=== PATIENT | male | born 1985 | race Caucasian/White ===

== ENCOUNTER 2016-09-19 10:30 | Emergency (ER) | payer OTHER ==
[~2016-09-19] VITALS: Ht 180.3 cm; Wt 73.5 kg
[~2016-09-19 10:30] MED LIST: IBUPROFEN800 MG PO; VICODIN5-300 PO
--- NOTE | 2016-09-19 10:52 | ED INFLUENZA/URI COMPLAINT ---
History of Present Illness General Chief Complaint: Upper Respiratory Sx/Fever Stated Complaint: URI Source: patient Exam Limitations: no limitations Vital Signs & Intake/Output Vital Signs & Intake/Output Vital Signs Date Time Temp Pulse Resp B/P Pulse O2 O2 Flow FiO2 Ox Delivery Rate 09/19 1222 97.0 84 20 125/70 98 Room Air 09/19 1142 Room Air Room Air 09/19 1035 98.1 92 18 142/90 99 Room Air Allergies Coded Allergies: NO KNOWN ALLERGIES (10/09/12) Reconcile Medications Albuterol Sulfate (Proair Hfa) 90 MCG HFA.AER.AD 2 PUF INH Q4-6 PRN PRN SOB Azithromycin (Zithromax) 250 MG TABLET 1 DP PO AD BRONCHITIS 2 the first day followed by 1 for days 2-5 Benzonatate (Tessalon Perle) 100 MG CAPSULE 1 CAP PO TID PRN COUGH Triage Note: 31 Y/O MALE C/O URI SYMPTOMS X 1 WEEK; REPORTS COUGHING WITH BLOOD IN MUCOUS THIS AM. AFEBRILE. Triage Nurses Notes Reviewed? yes Onset: Gradual Duration: week(s): (1) Timing: remote history Severity: moderate Severity Numbers: 7 Prior Episodes/Possible Cause: occassional episodes No Modifying Factors: none HPI: Patient is a 31 -year-old male, recently quit smoking less than a month ago presenting to the emergency department with chief complaint of upper respiratory congestion, intermittently productive cough of yellow sputum, malaise something going on for the past one week. Denies any nausea or vomiting or abdominal pain. No diarrhea. He reports that his son was sick with similar symptoms. Denies taking anything [id number] to help with symptoms. Denies chest pain palpitations. Only short of breath with cough. No recent travel. Patient also reports blood-tinged sputum times one episode this morning. He reports he was coughing all night long. Positive chills but no fevers. No night sweats. (DOIRS REEDER) Past History Travel History Traveled to [place] past 21 day No Medical History Any Pertinent Medical History? 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 No (DORIS REEDER) Review of Systems Review of Systems Constitutional: Reports: malaise. Comments Review of systems: See HPI, All other systems negative. Constitutional, no fever or weight loss HEENT: No visual changes Cardiovascular: No chest pain ,palpitation Skin, no jaundice no rashes Respiratory: Positive cough, one episode of hemoptysis GI: No nausea no vomiting Muscle skeletal: no back pain, no neck pain, Neurologic: No numbness no MORALES Psych: No stress anxiety o Immunology: No splenectomy or history of AIDS (DORIS REEDER) Physical Exam Physical Exam General Appearance: well developed/nourished, no apparent distress, alert, awake , comfortable Ears, Nose, Throat: nasal congestion, nasal drainage, pharyngeal erythema Comments: Well-developed well-nourished person in no acute distress HEENT: Pupils equally round and reactive to light and accommodation. Nose is atraumatic. External auditory canal and Tympanic membranes clear. Pharynx is moderately erythematous, no exudate, clearing secretions without difficulty. Uvula midline. No swelling or edema. No sinus tenderness to palpation over the maxillary and frontal sinuses. Neck: Supple, no lymphadenopathy, normal range of motion without pain or tenderness Back: Nontender Cardiovascular: Regular rate and rhythms no murmurs rubs or gallops, normal JVP Respiratory: Chest nontender. No respiratory distress.mild wheezing to auscultation bilaterally at the bases. Neuro: Alert oriented x3 Skin: No appreciable rash on exposed skin, skin is warm and dry. Psych: Mood and affect is normal, memory and judgment is normal. Core Measures Severe Sepsis Present: No Septic Shock Present: No (DORIS REEDER) Progress Differential Diagnosis: pneumonia, pharyngitis, sinusitis, TB, , VIRAL SYNDROME BRONCHITIS Plan of Care: Orders Procedure Date/time Status XRY-CHEST XRAY, PA AND LATERAL 09/19 1051 Active Diagnostic Imaging: Viewed by Me: Radiology Read. Discussed w/RAD: Radiology Read. Radiology Impression: PATIENT: ALISHA JUNIOR PRESENT AGE: 31 PATIENT ACCOUNT NO: [id number] : 87 LOCATION: [facility] ORDERING PHYSICIAN: DORIS KEARNS SERVICE DATE: 09/19/16 EXAM TYPE: RAD - XRY-CHEST XRAY, PA AND LATERAL EXAMINATION: XR CHEST CLINICAL INFORMATION: Cough and chest congestion with phlegm production. COMPARISON: TECHNIQUE: PA and lateral views of the chest were obtained. FINDINGS: Lungs are well expanded and clear. No pulmonary consolidation, pleural effusion or hilar lymphadenopathy. No significant abnormality is noted involving the heart, lungs, mediastinum, bony thorax, or soft tissues. IMPRESSION: No acute cardiopulmonary findings. Initial ED EKG: none (CHANTE KEARNS,DORIS) Departure Departure Time of Disposition: 1053 Disposition: HOME OR SELF CARE Condition: Stable Clinical Impression Primary Impression: Bronchitis Referrals: [facility] PATIENT HAS NO PRIMARY CARE DR (PCP/Family) Referred to [facility] as new patient No Additional Instructions: Follow-up with your primary care physician call to make an appointment. Increase fluids. Take antibiotics as prescribed. Use albuterol inhaler as directed for shortness of breath. Take Tessalon Perles as prescribed for cough. Wash her hands several times a day to help prevent transmission. Departure Forms: Customer Survey General Discharge Information Prescriptions: Current Visit Scripts Albuterol Sulfate (Proair Hfa) 2 PUF INH Q4-6 PRN PRN SOB #1 INHAL Azithromycin (Zithromax) 1 DP PO AD #6 TAB 2 the first day followed by 1 for days 2-5 Benzonatate (Tessalon Perle) 1 CAP PO TID PRN COUGH #30 CAP (DORIS REEDER) PA/TEST BORING CREW CHIEF Co-Sign Statement Statement: ED Attending supervision documentation- [] I saw and evaluated the patient. I have also reviewed all the pertinent lab results and diagnostic results. I agree with the findings and the plan of care as documented in the PA's/TEST BORING CREW CHIEF's documentation. x I have reviewed the ED Record and agree with the PA's/TEST BORING CREW CHIEF's documentation. [] Additions or exceptions (if any) to the PAs/TEST BORING CREW CHIEF's note and plan are summarized below: [] (LANCE ESTRELLA,RANDAL)
[2016-09-19] MEDS ORDERED: TESSALON PERLE100 M1 PO (10:56)
[2016-09-19] MEDS ORDERED: PROAIR HFA8.5 GM INH (10:56)
[2016-09-19] MEDS ORDERED: ZITHROMAX250 M2 PO (10:56)
--- NOTE | 2016-09-19 11:47 | RADIOLOGY REPORT ---
EXAMINATION: XR CHEST CLINICAL INFORMATION: Cough and chest congestion with phlegm production. COMPARISON: 06/09/2012 TECHNIQUE: PA and lateral views of the chest were obtained. FINDINGS: Lungs are well expanded and clear. No pulmonary consolidation, pleural effusion or hilar lymphadenopathy. No significant abnormality is noted involving the heart, lungs, mediastinum, bony thorax, or soft tissues. IMPRESSION: No acute cardiopulmonary findings.
[2016-09-19 12:22] VITALS: BP 125/70
== END 2016-09-19 12:24 ==
LOC: ERH 10:30
DX: J40 Bronchitis, not specified as acute or chronic (principal); Z87.891 Personal history of nicotine dependence

== ENCOUNTER 2017-01-09 17:36 | Emergency (ER) | payer OTHER ==
[~2017-01-09] VITALS: Ht 180.3 cm; Wt 71.2 kg
[~2017-01-09 17:36] MED LIST changes: +PROAIR HFA8.5 GM INH; +TESSALON PERLE100 M1 PO; +ZITHROMAX250 M2 PO
[2017-01-09 17:46] VITALS: BP 158/81
--- NOTE | 2017-01-09 18:32 | RADIOLOGY REPORT ---
EXAMINATION: XR FOOT, LEFT CLINICAL INFORMATION: Injury, pain, swelling COMPARISON: None TECHNIQUE: AP, lateral, and oblique views of the left foot. FINDINGS: Negative for acute fracture or dislocation. IMPRESSION: No fracture or dislocation left foot.
[2017-01-09] MEDS ORDERED: IBUPROFEN800 M1 PO (18:46)
--- NOTE | 2017-01-09 18:47 | ED ANKLE/FOOT INJURY COMPLAINT ---
History of Present Illness General Chief Complaint: Foot or Ankle Injury Stated Complaint: LT ANKLE PAIN Source: patient Exam Limitations: no limitations Vital Signs & Intake/Output Vital Signs & Intake/Output Vital Signs Date Time Temp Pulse Resp B/P B/P Pulse O2 O2 Flow FiO2 Mean Ox Delivery Rate 01/09 1746 98.9 110 18 158/81 98 Room Air Allergies Coded Allergies: NO KNOWN ALLERGIES (10/09/12) Reconcile Medications Albuterol Sulfate (Proair Hfa) 90 MCG HFA.AER.AD 2 PUF INH Q4-6 PRN PRN SOB Ibuprofen 800 MG TABLET 1 TAB PO TID pain Triage Note: PT TO TRIAGE WITH C/O LEFT FOOT PAIN 8/10 AND SWELLING S/P INJURY AT WORK YESTERDAY. PT TOOK TYLENOL AND VICODIN AT 3PM. ICE PACK PROVIDED. Triage Nurses Notes Reviewed? yes Occurred: just prior to arrival Duration: day(s):, constant, continues in ED Timing: recent history Severity: moderate, severe Pain/Injury Location: Left: Foot. No Modifying Factors: none HPI: 31-year-old male comes into emergency room for further evaluation of left foot pain. Patient reports that he was at work when a ladder dropped on his foot yesterday. Sharp throbbing pain. Continuous. Nonradiating. Denies any other associated symptoms. (HARSHAD PONCE) Past History Travel History Traveled to [place] past 21 day No Medical History Any Pertinent Medical History? 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 No (HARSHAD PONCE) Review of Systems Review of Systems Constitutional: Reports: no symptoms. EENTM: Reports: no symptoms. Respiratory: Reports: no symptoms. Cardiovascular: Reports: no symptoms. GI: Reports: no symptoms. Genitourinary: Reports: no symptoms. Musculoskeletal: Reports: see HPI. Skin: Reports: no symptoms. Neurological/Psychological: Reports: no symptoms. Hematologic/Endocrine: Reports: no symptoms. Immunologic/Allergic: Reports: no symptoms. All Other Systems: Reviewed and Negative (HARSHAD PONCE) Physical Exam Physical Exam General Appearance: well developed/nourished, mild distress Head: atraumatic Eyes: Bilateral: normal appearance. Ears, Nose, Throat: normal ENT inspection, hearing grossly normal Neck: normal inspection Cardiovascular/Respiratory: no respiratory distress Back: normal inspection Leg/Knee/Thigh Left: normal range of motion Ankle Left: normal inspection, normal range of motion Foot Left: limited range of motion, soft tissue tenderness, swelling Neuro/Vascular: normal motor function, normal sensation Tendon: normal tendon function Psychiatric: awake, alert, oriented x 3 Skin: intact, normal color, warm/dry (HARSHAD PONCE) Progress Differential Diagnosis: septic arthritis, gout, fracture, dislocation, sprain, contusion, compartmental syndrome Plan of Care: Orders Procedure Date/time Status Durable Medical Equipment 01/10 1848 Active Diagnostic Imaging: Viewed by Me: Radiology Read. Discussed w/RAD: Radiology Read. Comments: SERVICE DATE: 01/09/17 EXAM TYPE: RAD - XRY-FOOT COMPLETE, LEFT EXAMINATION: XR FOOT, LEFT CLINICAL INFORMATION: Injury, pain, swelling COMPARISON: None TECHNIQUE: AP, lateral, and oblique views of the left foot. FINDINGS: Negative for acute fracture or dislocation. IMPRESSION: No fracture or dislocation left foot. (HARSHAD PONCE) Departure Departure Disposition: HOME OR SELF CARE Condition: Stable Clinical Impression Primary Impression: Contusion of left foot Referrals: JENNIFER BOOTHE MD PATIENT HAS NO PRIMARY CARE DR (PCP/Family) Additional Instructions: Ice. Ibuprofen. Elevation. Weightbearing as tolerated. Follow-up with orthopedic if not better in 7-10 days. Please go over all results of today's visit with your primary care doctor. Contact your primary care doctor to let them know you were here in the emergency room. There may be nonspecific findings which may not be related to your visit today here in the emergency room but may require further evaluation and chronic monitoring by your primary care doctor. If you had a laceration today the chance of foreign body always remains. You should follow-up with your primary care doctor for recheck in 3-5 days for a wound check. If you had an x-ray done there is a chance that a fracture could have been missed on initial read and you should follow-up with your primary care doctor for repeat x-rays if symptoms persist. If your blood pressure was elevated here in the emergency room please have rechecked by her primary care doctor within the next 48 hours by your primary care doctor. If you were prescribed a narcotic here in the emergency room or any type of controlled substances you're not allowed to drive while taking this medication or operate any type of heavy machinery. Narcotics can make you feel lightheaded dizziness nausea and can cause constipation. You may need to pickling tank operator a stool softener. Thank you for choosing [facility] emergency room. Please return to the emergency room immediately if you have any other concerns worsening of symptoms. Departure Forms: Customer Survey Employee Industrial Accident General Discharge Information Prescriptions: Current Visit Scripts Ibuprofen 1 TAB PO TID #20 TAB Comments No evidence of acute fracture. Follow-up with orthopedic as needed. Rest. Motrin. (HARSHAD PONCE) PA/UNDER CUTTER Co-Sign Statement Statement: ED Attending supervision documentation- [] I saw and evaluated the patient. I have also reviewed all the pertinent lab results and diagnostic results. I agree with the findings and the plan of care as documented in the PA's/UNDER CUTTER's documentation. [X] I have reviewed the ED Record and agree with the PA's/UNDER CUTTER's documentation. [] Additions or exceptions (if any) to the PAs/UNDER CUTTER's note and plan are summarized below: [] (JOE ESTRELLA,TAMMIE Clark)
== END 2017-01-09 19:00 ==
LOC: ERH 17:36
DX: S90.32XA Contusion of left foot, initial encounter (principal); W23.1XXA Caught, crushed, jammed, or pinched between stationary objects, initial encounter; Y92.9 Unspecified place or not applicable; Y93.9 Activity, unspecified
CPT/HCPCS: 73630-LT

== ENCOUNTER 2017-11-02 20:12 | Emergency (ER) | payer SELFPAY ==
[~2017-11-02 20:12] MED LIST changes: +IBUPROFEN800 M1 PO
--- NOTE | 2017-11-02 21:41 | ED HAND/WRIST INJURY COMPLAINT ---
History of Present Illness General Chief Complaint: Upper Extremity Problem Stated Complaint: " LT PINKY SWELLING" Source: patient Exam Limitations: no limitations Vital Signs & Intake/Output Vital Signs & Intake/Output Vital Signs Date Time Temp Pulse Resp B/P B/P Pulse O2 O2 Flow FiO2 Mean Ox Delivery Rate 11/02 2020 97.2 82 22 134/79 98 Allergies Coded Allergies: NO KNOWN ALLERGIES (10/09/12) Triage Note: PER PT SWELLING TO L 5TH DIGIT, PT PUT A PIN IN IT NO DRAINAGE BUT NOW MORE SWOLLEN Triage Nurses Notes Reviewed? yes Occurred: 3 DAYS Duration: day(s): (3), constant, continues in ED, getting worse Timing: single episode today Injury Environment: home Severity: moderate, severe Severity Numbers: 8 Pain/Injury Location: Left: 5th finger. Method of Injury: unknown No Modifying Factors: none Associated Symptoms: swelling, redness HPI: 32-year-old male with no past medical history presents for evaluation of pain swelling and redness in his left fifth digit. Patient states that he first noticed the swelling a few days ago. He thought there may be an abscess there so he poked it with a pin and feels like it's only gotten worse. He denies any purulent discharge no streaking redness. No fevers. He is not diabetic. There is no trauma to the area. Has not taken any medicine for this. No numbness tingling. Unsure when his last tetanus shot was. No wrist pain. (Timothy KEARNS,Spike) Reconcile Medications Albuterol Sulfate (Proair Hfa) 90 MCG HFA.AER.AD 2 PUF INH Q4-6 PRN PRN SOB Cephalexin (Keflex) 500 MG CAPSULE 1 CAP PO TID abscess Ibuprofen 800 MG TABLET 1 TAB PO TID PRN PAIN Ibuprofen 800 MG TABLET 1 TAB PO TID pain Meloxicam (Mobic) 15 MG TABLET 1 TAB PO DAILY PRN pain Sulfamethoxazole/Trimethoprim (Bactrim Ds Tablet) 800 MG-160 MG TABLET 1 TAB PO BID CELLULITIS (Jian ESTRELLA,Sandi) Past History Travel History Traveled to [place] past 21 day No Medical History Any Pertinent Medical History? 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 No (Spike Sanford) Review of Systems Review of Systems Constitutional: Reports: no symptoms. EENTM: Reports: no symptoms. Respiratory: Reports: no symptoms. Cardiovascular: Reports: no symptoms. GI: Reports: no symptoms. Genitourinary: Reports: no symptoms. Musculoskeletal: Reports: see HPI, joint pain, joint swelling. Skin: Reports: see HPI, erythema. Neurological/Psychological: Reports: no symptoms. Hematologic/Endocrine: Reports: no symptoms. Immunologic/Allergic: Reports: no symptoms. All Other Systems: Reviewed and Negative (Spike Sanford) Physical Exam Physical Exam General Appearance: well developed/nourished, no apparent distress, alert, awake Head: atraumatic, normal appearance Eyes: Bilateral: normal appearance, EOMI. Ears, Nose, Throat: hearing grossly normal Neck: normal inspection, supple, full range of motion Cardiovascular/Respiratory: normal breath sounds, normal peripheral pulses, no respiratory distress Shoulder Left: normal range of motion, normal inspection Shoulder Right: normal range of motion, normal inspection Elbow Left: normal range of motion, normal inspection Elbow Right: normal range of motion, normal inspection Forearm Left: normal range of motion, normal inspection Forearm Right: normal range of motion, normal inspection Wrist Left: normal range of motion, normal inspection Wrist Right: normal range of motion, normal inspection Hand Left: normal range of motion, infection, swelling, tender, 5th finger, THE LEFT FINGER IS MILDLY SWOLLEN AND ERYTHEMATOUS. tHERE IS TENDERNESS TO PALPATION OVER THE PALMAR ASPECT OF THE DISTAL SEGMENT. nO PURULENT DISCHARGE. nO LYMPHATIC STREAKING. cAP REFILL LESS THAN 2 SECONDS. nEUROVASCULAR SUPPLY IS INTACT. fULL RANGE OF MOTION. nO SWELLING OF THE HAND OR WRIST Hand Right: normal inspection, normal range of motion Neurologic/Tendon: normal sensation, normal motor functions, normal tendon functions, responds to pain, no evidence tendon injury, no pulse deficit Skin: intact, normal color, warm/dry (Spike Sanford) Progress Differential Diagnosis: abscess, cellulitis, contusion, fracture, gout, paronychia, septic arthritis, sprain, tenosynovitis Plan of Care: Current Medications Sig/Mihir Start time Last Medication Dose Stop Time Status Admin Ibuprofen 800 MG ONCE ONE 11/02 2144 UNVr (Motrin) 11/02 2145 Tetanus/Diphtheria 0.5 ML ONCE ONE 11/02 2144 UNVr Toxoids Adsorbed 11/02 2145 (Decavac) Patient seen and evaluated. He has an infection to the left fifth digit. No signs of abscess currently. Patient did poke the area with pain. Tetanus was updated ibuprofen for pain. No lymphatic streaking or signs of tenosynovitis. Patient will be covered with Bactrim. Advised to apply warm compresses to the area keep it clean and dry. Follow-up in 2 days for wound check. Discussed return precautions in detail. Patient appears currently well and agrees the plan. (Spike Sanford) Departure Departure Disposition: HOME OR SELF CARE Condition: Stable Clinical Impression Primary Impression: Cellulitis Qualifiers: Site of cellulitis: extremity Site of cellulitis of extremity: finger Laterality: left Qualified Code: L03.012 - Cellulitis of left finger Referrals: Patient Has No Primary Care Dr (PCP/Family) Additional Instructions: REST keep the area Clean and dry. Do not apply topical antibiotics. Apply warm compresses for 15-20 minutes every few hours. Tylenol ibuprofen for pain. Take antibiotics for the full course. Monitor symptoms closely. If you have worsening pain worsening swelling fever or spreading redness return immediately. Otherwise follow-up with your primary care doctor in 2 or 3 days for wound check. Return sooner with any concerns. Departure Forms: Customer Survey General Discharge Information Prescriptions: Current Visit Scripts Ibuprofen 1 TAB PO TID PRN PAIN #30 TAB Sulfamethoxazole/Trimethoprim (Bactrim Ds Tablet) 1 TAB PO BID #14 TAB (Spike Sanford) PA/MACHINE VENEER REPAIRER Co-Sign Statement Statement: ED Attending supervision documentation- [] I saw and evaluated the patient. I have also reviewed all the pertinent lab results and diagnostic results. I agree with the findings and the plan of care as documented in the PA's/MACHINE VENEER REPAIRER's documentation. [X] I have reviewed the ED Record and agree with the PA's/MACHINE VENEER REPAIRER's documentation. [] Additions or exceptions (if any) to the PAs/MACHINE VENEER REPAIRER's note and plan are summarized below: [] (Jian ESTRELLA,Sandi)
[2017-11-02] MEDS ORDERED: IBUPROFEN800 M1 PO (21:46)
[2017-11-02] MEDS ORDERED: BACTRIM DS TAB1 EACH PO (21:46)
[2017-11-02 21:57] VITALS: BP 132/74
[2017-11-04] MEDS ORDERED: MOBIC15 M1 PO (23:00)
[2017-11-04] MEDS ORDERED: KEFLEX500 M1 PO (23:00)
== END 2017-11-02 21:59 ==
LOC: ERH 20:12
DX: L03.012 Cellulitis of left finger (principal); S61.237A Puncture wound without foreign body of left little finger without damage to nail, initial encounter; W27.3XXA Contact with needle (sewing), initial encounter; Y93.9 Activity, unspecified; Y92.9 Unspecified place or not applicable
CPT/HCPCS: 90471; 90714

== ENCOUNTER 2017-12-25 16:12 | Emergency (ER) | payer SELFPAY ==
[~2017-12-25] VITALS: Ht 180.3 cm; Wt 74.4 kg
[~2017-12-25 16:12] MED LIST changes: +BACTRIM DS TAB1 EACH PO; +KEFLEX500 M1 PO; +MOBIC15 M1 PO
[2017-12-25 16:54] VITALS: BP 129/84
[2017-12-25] MEDS ORDERED: PROAIR HFA8.5 GM INH (17:20)
[2017-12-25] MEDS ORDERED: TAMIFLU75 M1 PO (17:20)
--- NOTE | 2017-12-25 17:20 | ED INFLUENZA/URI COMPLAINT ---
History of Present Illness General Chief Complaint: General Adult Stated Complaint: WEAKNESS, BODY ACHES, FEVER, SOB Source: patient Exam Limitations: no limitations Vital Signs & Intake/Output Vital Signs & Intake/Output Vital Signs Date Time Temp Pulse Resp B/P B/P Pulse O2 O2 Flow FiO2 Mean Ox Delivery Rate 12/25 1718 97 12/25 1717 99.4 12/25 1654 99.4 92 16 129/84 98 Room Air Allergies Coded Allergies: NO KNOWN ALLERGIES (10/09/12) Reconcile Medications Albuterol Sulfate (Proair Hfa) 90 MCG HFA.AER.AD 2 PUF INH Q4-6 PRN PRN cough/ sob Albuterol Sulfate (Proair Hfa) 90 MCG HFA.AER.AD 2 PUF INH Q4-6 PRN PRN SOB Cephalexin (Keflex) 500 MG CAPSULE 1 CAP PO TID abscess Ibuprofen 800 MG TABLET 1 TAB PO TID PRN PAIN Ibuprofen 800 MG TABLET 1 TAB PO TID pain Meloxicam (Mobic) 15 MG TABLET 1 TAB PO DAILY PRN pain Oseltamivir Phosphate (Tamiflu) 75 MG CAPSULE 1 CAP PO BID flu Sulfamethoxazole/Trimethoprim (Bactrim Ds Tablet) 800 MG-160 MG TABLET 1 TAB PO BID CELLULITIS Triage Note: PT STATES HIS BODY ACHES HE HAS A FEVER WITH COLD LIKE S/S PT FEELING SOB WITH FEVERS ON AND OFF. Triage Nurses Notes Reviewed? yes Onset: Abrupt Duration: day(s): (1), constant, continues in ED, getting worse Timing: single episode today Severity: moderate, severe Severity Numbers: 7 Prior Episodes/Possible Cause: no prior episodes No Modifying Factors: none Associated Symptoms: cough, fever/chills, headache, muscle aches, nasal congestion, nasal drainage, sinus infection, sore throat HPI: 32-year-old male past medical history of bronchitis presents for evaluation of cough, congestion, bodyaches, fever, rhinorrhea and sore throat. Patient states symptoms have been present for the past day and started suddenly. Symptoms are getting worse. He reports comfortable clear sputum. She does not smoke. He reports mild wheezing. He has had bronchitis in the past. No chest pain hemoptysis nausea vomiting or diarrhea. He is not taking any medicine. No sick contacts. Past History Travel History Traveled to [place] past 21 day No Medical History Any Pertinent Medical History? 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 No Review of Systems Review of Systems Constitutional: Reports: fever, malaise. EENTM: Reports: nasal congestion, throat pain. Respiratory: Reports: see HPI, cough, sputum production, wheezing. Cardiovascular: Reports: no symptoms. GI: Reports: no symptoms. Genitourinary: Reports: no symptoms. Musculoskeletal: Reports: joint pain, muscle pain, muscle stiffness. Skin: Reports: no symptoms. Neurological/Psychological: Reports: no symptoms. Hematologic/Endocrine: Reports: no symptoms. Immunologic/Allergic: Reports: no symptoms. All Other Systems: Reviewed and Negative Physical Exam Physical Exam General Appearance: well developed/nourished, no apparent distress, alert, awake Head: atraumatic, normal appearance Eyes: Bilateral: normal appearance, PERRL, EOMI. Ears, Nose, Throat: normal ENT inspection, moist mucous membrane, Tympanic normal, pharynx normal, nasal congestion, nasal drainage (CLEAR) Neck: normal inspection, supple, full range of motion Respiratory: normal breath sounds, chest non-tender, no respiratory distress, lungs clear Cardiovascular: regular rate/rhythm, normal peripheral pulses Peripheral Pulses: 2+ radial (R), 2+ radial (L) Gastrointestinal: soft, non-tender Back: normal inspection, normal range of motion, no vertebral tenderness Extremities: normal inspection, normal range of motion, no edema Neurologic/Psych: no motor/sensory deficits, awake, alert, oriented x 3, normal gait Skin: intact, normal color, warm/dry Lymphatic: no anterior cervical alli Core Measures Sepsis Present: No Sepsis Focused Exam Completed? No Progress Differential Diagnosis: influenza, pneumonia, pharyngitis, sinusitis, ACUTE BRONCHITIS Plan of Care: Orders Procedure Date/time Status VIRAL CULTURE 12/25 1657 Active Patient seen and evaluated. He has a low-grade temps and is reporting congestion and rhinorrhea body aches cough and congestion. Influenza testing is positive. No signs of bacterial infection on exam. Instructed patient to rest drink plenty of fluids alternate Tylenol and ibuprofen. He'll be covered with Tamiflu. Pro-air inhaler as needed for cough or shortness of breath. Make a follow-up with the primary care doctor discussed return precautions patient agrees the plan. Initial ED EKG: none Departure Departure Disposition: HOME OR SELF CARE Condition: Stable Clinical Impression Primary Impression: Influenza B Referrals: Patient Has No Primary Care Dr (PCP/Family) Additional Instructions: rest and drink plently of fluids. Tyenol/ibuprofen every 6 hours. tamiflu as diretced. wash hands disinfect surfaces. make a follow up with a primary care docotr as soon as possibel for a rechecketrun with any concners. Departure Forms: Customer Survey General Discharge Information Prescriptions: Current Visit Scripts Oseltamivir Phosphate (Tamiflu) 1 CAP PO BID #10 CAP Albuterol Sulfate (Proair Hfa) 2 PUF INH Q4-6 PRN PRN cough/sob #1 INHAL
[2017-12-28] MEDS ORDERED: TESSALON PERLE100 M1 PO (17:57)
== END 2017-12-25 17:20 ==
LOC: ERH 16:12
DX: J10.1 Influenza due to other identified influenza virus with other respiratory manifestations (principal)
CPT/HCPCS: 87804; 87804-59

== ENCOUNTER 2018-05-14 05:31 | Emergency (ER) | payer SELFPAY ==
[~2018-05-14] VITALS: Ht 180.3 cm; Wt 71.2 kg
[~2018-05-14 05:31] MED LIST changes: +TAMIFLU75 M1 PO
[2018-05-14 06:17] VITALS: BP 135/92
[2018-05-14] MEDS ORDERED: AMOXICILLIN250 M3 PO (06:24)
[2018-05-14] MEDS ORDERED: BACTRIM DS TAB1 EACH PO (06:24)
--- NOTE | 2018-05-14 06:24 | ED THROAT/DENTAL COMPLAINT ---
History of Present Illness General Chief Complaint: General Adult Stated Complaint: " SWOLLEN LOWER LIP" Source: patient, old records Exam Limitations: no limitations Vital Signs & Intake/Output Vital Signs & Intake/Output Vital Signs Date Time Temp Pulse Resp B/P B/P Pulse O2 O2 Flow FiO2 Mean Ox Delivery Rate 05/14 0621 Room Air 05/14 0617 98.0 54 18 135/92 98 Room Air Allergies Coded Allergies: No Known Allergies (12/28/17) Reconcile Medications Albuterol Sulfate (Proair Hfa) 90 MCG HFA.AER.AD 2 PUF INH Q4-6 PRN PRN cough/ sob Albuterol Sulfate (Proair Hfa) 90 MCG HFA.AER.AD 2 PUF INH Q4-6 PRN PRN SOB Amoxicillin 250 MG CAPSULE 1 CAP PO TID ABSCESS Benzonatate (Tessalon Perle) 100 MG CAPSULE 1 CAP PO TID PRN cough Cephalexin (Keflex) 500 MG CAPSULE 1 CAP PO TID abscess Ibuprofen 800 MG TABLET 1 TAB PO TID PRN PAIN Ibuprofen 800 MG TABLET 1 TAB PO TID pain Meloxicam (Mobic) 15 MG TABLET 1 TAB PO DAILY PRN pain Oseltamivir Phosphate (Tamiflu) 75 MG CAPSULE 1 CAP PO BID flu Sulfamethoxazole/Trimethoprim (Bactrim Ds Tablet) 800 MG-160 MG TABLET 1 TAB PO BID CELLULITIS Sulfamethoxazole/Trimethoprim (Bactrim Ds Tablet) 800 MG-160 MG TABLET 1 TAB PO BID ABSCESS Triage Note: PT TO TRIAGE WITH L LOWER LIP SWELLING SINCE POPPING WHAT HE THOUGHT WAS A PIMPLE SUNDAY. MD DIAZ AT BEDSIDE. Triage Nurses Notes Reviewed? yes HPI: 3 days ago patient had a pimple on his lower lip and he popped it. Since then the area has been swelling. Now it is tender to touch. There is no erythema. There are no fevers or chills. There is no difficulty breathing or swallowing. Past History Travel History Traveled to [place] past 21 day No Medical History Any Pertinent Medical History? 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 No Review of Systems Review of Systems Constitutional: Reports: no symptoms. EENTM: Reports: see HPI. Respiratory: Reports: no symptoms. Cardiovascular: Reports: no symptoms. GI: Reports: no symptoms. Neurological/Psychological: Reports: no symptoms. Immunologic/Allergic: Reports: no symptoms. Physical Exam Physical Exam General Appearance: well developed/nourished, alert, awake, anxious, mild distress Eyes: Bilateral: PERRL, EOMI. Nose: normal inspection Mouth/Throat: 1 CM X 1 CM AREA OF INDURATION TO THE LOWER LIP. Neck: normal inspection, supple, no midline tenderness Cardiovascular/Respiratory: normal breath sounds, normal peripheral pulses, regular rate/rhythm Neurologic/Psych: no motor/sensory deficits, awake, alert, oriented x 3 Core Measures ACS in differential dx? No Sepsis Present: No Sepsis Focused Exam Completed? No Progress Differential Diagnosis: LIP ABSCESS Plan of Care: ABX Departure Departure Disposition: HOME OR SELF CARE Condition: Stable Clinical Impression Primary Impression: Lip abscess Referrals: Patient Has No Primary Care Dr (PCP/Family) Additional Instructions: Use warm washcloth. Take antibiotics as prescribed. Return if symptoms worsen or for any concerns. Departure Forms: Customer Survey General Discharge Information Prescriptions: Current Visit Scripts Amoxicillin 1 CAP PO TID #30 CAP Sulfamethoxazole/Trimethoprim (Bactrim Ds Tablet) 1 TAB PO BID #20 TAB
== END 2018-05-14 06:28 ==
LOC: ERH 05:31
DX: K13.0 Diseases of lips (principal)